=== PATIENT | male | born 1970 | race Caucasian/White ===

== ENCOUNTER 2019-05-19 19:16 | Emergency (ER) | payer SELFPAY ==
[2019-05-19] MEDS ORDERED: ondansetron/PF 4mg/2ml inj IV ONE (19:45)
[2019-05-19] MEDS ORDERED: morphine 4 MG/ML inj SYRINge IV ONE ×2 (19:45→20:35)
[2019-05-19] MEDS ORDERED: normal saline 1000ml 1,000 ML IVB ONE (19:45)
[2019-05-19 20:04] LABS: BASOPHILS # (AUTO) 0.1 X10'3 (0-0.2); BASOPHILS % (AUTO) 0.5 % (0-1); EOSINOPHILS % (AUTO) 0.3 % (0-6); HEMATOCRIT 49.8 % (42.0-52.0); HEMOGLOBIN 17.1 g/dl (14.0-17.9); LYMPHOCYTES # (AUTO) 1.5 X10'3 (1.1-4.8); LYMPHOCYTES % (AUTO) 13.3 % (21-51); MEAN CORPUSCULAR HEMOGLOBIN 31.9 PG (27.0-31.0); MEAN CORPUSCULAR HGB CONC 34.4 g/dL (33.0-36.5); MEAN CORPUSCULAR VOLUME 92.9 FL (78-98); MEAN PLATELET VOLUME 7.4 FL (7.4-10.4); MONOCYTES # (AUTO) 0.6 X10'3 (0-0.9); MONOCYTES % (AUTO) 5.4 % (2-12); NEUTROPHILS # (AUTO) 9.2 X10'3 (1.8-7.7); NEUTROPHILS % (AUTO) 80.5 % (42-75); PLATELET COUNT 373 X10'3 (140-440); RED BLOOD COUNT 5.35 X10'6 (4.70-6.10); RED CELL DISTRIBUTION WIDTH 14.3 % (11.5-14.5); WHITE BLOOD COUNT 11.5 X10'3 (4.5-11.0)
[2019-05-19 20:19] LABS: ALANINE AMINOTRANSFERASE 27 U/L (12-78); ALBUMIN 4.6 G/DL (3.4-5.0); ALBUMIN/GLOBULIN RATIO 1.5 (1.1-1.5); ALKALINE PHOSPHATASE 72 IU/L (46-116); ANION GAP 15 (8-16); ASPARTATE AMINO TRANSFERASE 17 U/L (10-37); BILIRUBIN,TOTAL 0.7 MG/DL (0.1-1.0); BLOOD UREA NITROGEN 10 MG/DL (7-18); BUN/CREATININE RATIO 7.9 (5.4-32.0); CALCIUM 9.8 MG/DL (8.5-10.1); CHLORIDE 106 MMOL/L (99-107); CREATININE 1.26 MG/DL (0.60-1.10); GLUCOSE 130 MG/DL (70-104); LIPASE 85 U/L (73-393); POTASSIUM 3.3 MMOL/L (3.5-5.1); SODIUM 141 MMOL/L (135-145); TOTAL CARBON DIOXIDE 19.8 MMOL/L (24-32); TOTAL PROTEIN 7.7 G/DL (6.4-8.2); eGFR 61 ML/MIN
[2019-05-19] MEDS ORDERED: normal saline 1000ML IV soln IVB ONE (20:35)
[2019-05-19 21:00] LABS: MAGNESIUM 1.7 MG/DL (1.5-2.4)
[2019-05-19] MEDS ORDERED: pantoprazole 40 MG vial IV ONE (21:40)
[2019-05-19 22:23] LABS: CLARITY,URINE SLIGHTLY CLOUDY (Clear); COLOR,URINE YELLOW (Yellow); GLUCOSE, URINE NEGATIVE (Neg); KETONES,URINE >=80 mg/dl (Neg); LEUKOCYTE ESTERASE ,URINE NEGATIVE (Neg); NITRITES, URINE NEGATIVE (Neg); OCCULT BLOOD,URINE NEGATIVE (Neg); PH,URINE >=9.0 (4.8-8.0); PROTEIN,URINE NEGATIVE (Neg)
[2019-05-19 22:28] LABS: UA COLLECTION TYPE URINAL
[2019-05-19 22:32] LABS: AMORPHOUS PHOSPHATES 3+; BACTERIA,URINE NONE SEEN /HPF (Neg); MUCUS STRANDS NONE SEEN /LPF (Neg); RBC,URINE NONE SEEN /HPF (0-2); SQUAMOUS EPITHELIAL CELL,UR NONE SEEN /LPF (FEW); WBC,URINE NONE SEEN /HPF (0-4)
[2019-05-19 22:33] LABS: SPERM FEW /HPF (NEGATIVE)
[2019-05-19 23:49] VITALS: BP 121/71
== END 2019-05-19 23:51 | disposition home or self-care (01) ==
LOC: ER 19:17
DX: R10.31 Right lower quadrant pain (principal); R11.2 Nausea with vomiting, unspecified; F12.90 Cannabis use, unspecified, uncomplicated; F17.200 Nicotine dependence, unspecified, uncomplicated
CPT/HCPCS: 36415; 71045; 74176; 80053; 81001; 83690; 83735; 84145; 84484; 85025; 85610; 93005; 96361; 96374; 96375; 96376; 99284; C9113; J2270; J2405; J7030

== ENCOUNTER 2025-07-15 12:17 | Emergency (ER) | payer BC, SELFPAY ==
[~2025-07-15] VITALS: Ht 172.7 cm; Wt 75.2 kg
[2025-07-15 12:25] VITALS: TEMP 97.7
--- NOTE | 2025-07-15 12:42 | ELECTROCARDIOGRAPH REPORT ---
[facility] Test Date: 2025-07-15 Test Time: 12:39:47 Pat Name: SHERLEY VALLE Department: [facility]- Patient ID: [facility]-[id number] Room: Gender: M Inbound Call Center Agent: : [id number] Requested By: MAY SHARPE Order Number: [id number] Reading MD: Dr. Andrade Arenas Measurements Intervals [place] Rate: 79 P: 62 MN: 141 QRS: 88 QRSD: 110 T: 45 QT: 395 QTc: 453 Interpretive Statements Sinus rhythm Electronically Signed On 07-15-2025 18:10:[address] Andrade Arenas Please click the below link to view image of tracing.
[2025-07-15 12:51] LABS: MEAN PLATELET VOLUME 7.4 FL (7.4-10.4); RED CELL DISTRIBUTION WIDTH 14.3 % (11.5-14.5)
--- NOTE | 2025-07-15 13:07 | RADIOLOGY REPORT ---
CLINICAL HISTORY: CP TECHNIQUE: Single view of the chest was obtained. COMPARISON: None FINDINGS: The heart size and pulmonary vasculature are normal. The lungs are clear. IMPRESSION: NO ACUTE CARDIOPULMONARY PROCESS.
[2025-07-15 13:12] LABS: CREATININE 0.97 MG/DL (0.60-1.10); PRO BRAIN NATRIURETIC PEPTIDE < 30 PG/ML (0-125); TOTAL CARBON DIOXIDE 23.3 MMOL/L (24-32); eCRCL 84 ML/MIN; eGFR 81 ML/MIN
--- NOTE | 2025-07-15 13:26 | Physician Documentation ---
History of Present Illness ~ Chief Complaint: Palpitations Stated Complaint: HEART PALPITATION Time Seen by MD: 12:52 Mode of Arrival: POV, Ambulatory HPI 55 year old male reports several weeks of heart "fluttering" which is bothering him. Denies LOC, chest pain, fevers, cough, shortness of breath. He denies nausea and vomiting but does report that his stomach has been "rolling" now and then. Denies new medications. Reports some numbness and tingling to the palmar aspect of his left 4th and 5th digits as well. Medication Reconciliation Allergies: Coded Allergies: codeine (Verified Adverse Reaction, Unknown, vomit and anxiety, 07/15/25) Past Medical History Past Medical History: No Pertinent History Past Surgical History: orthopedic surgeries Alcohol Use: None Drug Use: marijuana Lives with: Mother Lives In: Home Review of Systems All Other Systems at this time: Reviewed and Negative Physical Exam Vital Signs: RN Vital Signs have been reviewed: Yes, Temperature: 97.7, Source: Oral, Heart Rate: 93, Respiratory Rate: 13, BP: 164/95, Pulse Oximetry: 98, Weight: 75.200 Oxygen Flow Rate: 0 Physical Exam Gen: no distress HEENT: PERRL, EOMI Pulm: no distress CTAB CV: RRR no m/c/r Abd: deferred MSK: no deformity Skin: w/d/i Psych: unremarkable Progress Results/Orders Results/Orders Orders - MAY SHARPE MD Chest,Single View (07/15/25 12:30) Monitor (07/15/25 12:30) Saline Lock (07/15/25 12:30) Oxygen (07/15/25 12:30) Hs Troponin I W Calculations (07/15/25 14:30) Hs Troponin I W Calculations (07/15/25 15:30) Completed Orders - MAY SHARPE MD Chest,Single View (07/15/25 12:30) Cbc/Diff (07/15/25 12:30) BMP (07/15/25 12:30) PBNP (07/15/25 12:30) Electrocardiogram (07/15/25 12:30) Hs Troponin I W Calculations (07/15/25 12:30) Vital Signs 07/15/25 07/15/25 12:25 12:48 Temp 97.7 Pulse 93 Resp 16 13 B/P (MAP) 164/95 Pulse Ox 98 O2 Flow Rate 0 Laboratory Tests Test 07/15/25 12:38 White Blood Count 8.7 Red Blood Count 5.20 Hemoglobin 16.5 Hematocrit 48.8 Mean Corpuscular Volume 93.8 Mean Corpuscular Hemoglobin 31.8 H Mean Corpuscular Hemoglobin Concent 33.9 Red Cell Distribution Width 14.3 Platelet Count 331 Mean Platelet Volume 7.4 Neutrophils (%) (Auto) 60.6 Lymphocytes (%) (Auto) 30.2 Monocytes (%) (Auto) 6.2 Eosinophils (%) (Auto) 1.6 Basophils (%) (Auto) 1.4 H Neutrophils # (Auto) 5.3 Lymphocytes # (Auto) 2.6 Monocytes # (Auto) 0.5 Eosinophils # (Auto) 0.1 Basophils # (Auto) 0.1 CBC Comment Sodium Level 139 Potassium Level 3.9 Chloride Level 107 Carbon Dioxide Level 23.3 L Anion Gap 9 Blood Urea Nitrogen 14 Creatinine 0.97 Estimated GFR/1.73 m2 81 BUN/Creatinine Ratio 14.4 Glucose Level 131 H Calcium Level 9.1 Troponin I High Sensitivity 4 Pro-B-Type Natriuretic Peptide < 30 Albumin 4.5 Chemistry Comments Medical Decision Making Additional information obtaine: family Findings 55 year old male with palpitations as above. Exam and vitals unremarkable. EKG by my interpretation demonstrated NSR with no STEMI criteria and no evidence of atrial fibrillation. CXR by my interpretation demonstrated normal contours, no PTX, no PNA by my interpretation. Remainder of labs unremarkable. Observed on telemonitor and no evidence of dysrhythmia during his stay. Counseled to follow up with PCP for holter monitoring or return for new or worsening symptoms. Differential Dx:Considerations: Include: atrial fibrillation, atrial flutter, MAT, PACs, PSVT, sinus tachycardia, 1st degree AV block, 2nd degree AVB-type 1, 2nd degree AVB-type 2, PVCs Differential Dx:Considerations: Include other Departure Disposition: 01 HOME / SELF CARE / HOMELESS Impression: Primary Impression: Palpitations Condition: Stable Discharge Instructions: Atrial Fibrillation, [id number] Referrals: NO PRIMARY CARE PROVIDER (PCP) Education Educated: Patient Educated regarding: diagnosis, treatment, prognosis, need for follow up Signature Scribe Signature: . Attestation: MAY SOLANO MD Jul 15, 2025 13:26
[2025-07-15 14:14] VITALS: BP 141/97; PULSE 93; RESP 18; O2SAT 95
== END 2025-07-15 14:16 | disposition home or self-care (01) ==
LOC: ER 12:18
DX: R00.2 Palpitations (principal); R06.02 Shortness of breath
CPT/HCPCS: 36415; 71045; 80048; 83880; 84484; 85025; 93005; 99285